=== PATIENT | female | born 1995 | race African-American/Black ===

== ENCOUNTER 2024-11-30 22:31 | Emergency (ER) | payer OTHER ==
[2024-12-01] MEDS ORDERED: Ibuprofen 800 MG TAB ONE (00:42)
== END 2024-12-01 01:00 | disposition home or self-care (01) ==
LOC: ERS 22:31
DX: S91.212A Laceration without foreign body of left great toe with damage to nail, initial encounter (principal); F17.210 Nicotine dependence, cigarettes, uncomplicated; X58.XXXA Exposure to other specified factors, initial encounter
CPT/HCPCS: 99283